=== PATIENT | male | born 1970 | race Two or more races ===

== ENCOUNTER 2018-06-25 11:15 | Inpatient (IN) | payer OTHER ==
[~2018-06-25] VITALS: Ht 172.7 cm; Wt 89.4 kg
[2018-06-25] MEDS ORDERED: VASOTEC20 M1 PO (12:38)
[2018-06-25] MEDS ORDERED: VIMPAT200 MG PO (12:39)
[2018-06-25] MEDS ORDERED: KEPPRA750 MG PO (12:39)
[2018-06-25] MEDS ORDERED: LIPITOR20 MG PO (12:40)
[2018-07-02] MEDS ORDERED: TRAM1TAB98 PO (14:32)
[2018-07-02] MEDS ORDERED: PANTOPRAZOLE SO40 MG PO (14:33)
[2018-07-02] MEDS ORDERED: Intestinex CAP PO (14:33)
== END 2018-07-02 16:16 | disposition home or self-care (01) | DRG 331 ==
LOC: ADM 11:15 → SURH 11:15 → EDSTATUS 11:15 → O/R 06-29 06:57 → SURH 06-29 06:57
PROVIDERS: ADMIT Surgery
PROC: 07TC4ZZ Resection of Pelvis Lymphatic, Percutaneous Endoscopic Approach (ICD-10-PCS; 2018-06-29)
PROC: 0DJD8ZZ Inspection of Lower Intestinal Tract, Via Natural or Artificial Opening Endoscopic (ICD-10-PCS; 2018-06-29)
PROC: 0DTN4ZZ Resection of Sigmoid Colon, Percutaneous Endoscopic Approach (ICD-10-PCS; principal; 2018-06-29 12:00)
DX: C19 Malignant neoplasm of rectosigmoid junction (principal); I11.9 Hypertensive heart disease without heart failure; E11.9 Type 2 diabetes mellitus without complications; E78.00 Pure hypercholesterolemia, unspecified; G40.909 Epilepsy, unspecified, not intractable, without status epilepticus

== ENCOUNTER 2018-07-08 13:52 | Inpatient (IN) | payer OTHER ==
[~2018-07-08] VITALS: Ht 172.7 cm; Wt 83.5 kg
[~2018-07-08 13:52] MED LIST: Intestinex CAP PO; KEPPRA750 MG PO; LIPITOR20 MG PO; PANTOPRAZOLE SO40 MG PO; TRAM1TAB98 PO; VASOTEC20 M1 PO; VIMPAT200 MG PO
[2018-07-19] MEDS ORDERED: Intestinex CAP PO (14:52)
== END 2018-07-19 15:40 | disposition home or self-care (01) | DRG 394 ==
LOC: ER 13:52 → SEC-K 18:26 → SURG 18:26
PROVIDERS: ADMIT Surgery
PROC: BW21ZZZ Computerized Tomography (CT Scan) of Abdomen and Pelvis (ICD-10-PCS; principal; 2018-07-08)
PROC: 02HV33Z Insertion of Infusion Device into Superior Vena Cava, Percutaneous Approach (ICD-10-PCS; 2018-07-10)
DX: K91.89 Other postprocedural complications and disorders of digestive system (principal); J90 Pleural effusion, not elsewhere classified; J98.11 Atelectasis; G89.18 Other acute postprocedural pain; R14.0 Abdominal distension (gaseous); R50.82 Postprocedural fever; E11.9 Type 2 diabetes mellitus without complications; G40.909 Epilepsy, unspecified, not intractable, without status epilepticus; I11.9 Hypertensive heart disease without heart failure; E78.00 Pure hypercholesterolemia, unspecified; K59.09 Other constipation; E78.49 Other hyperlipidemia; Z85.038 Personal history of other malignant neoplasm of large intestine; Z90.49 Acquired absence of other specified parts of digestive tract

== ENCOUNTER 2018-08-17 05:55 | Day surgery (SDC) | payer OTHER ==
[2018-08-17] MEDS ORDERED: ULTRACET PO (09:43)
== END 2018-08-17 12:50 | disposition home or self-care (01) ==
LOC: CIR.AMB 05:55
DX: C18.7 Malignant neoplasm of sigmoid colon (principal)
CPT/HCPCS: 36561; C1751

== ENCOUNTER 2020-05-04 05:13 | Day surgery (SDC) | payer OTHER ==
[~2020-05-04 05:13] MED LIST changes: +JANUMET XR 50-1 EAC1 PO; +ULTRACET PO
[2020-05-04] MEDS ORDERED: ULTRACET PO (08:24)
== END 2020-05-04 10:20 | disposition home or self-care (01) ==
LOC: CIR.AMB 05:13
PROVIDERS: ATTEND Surgery
DX: C18.7 Malignant neoplasm of sigmoid colon (principal); R59.0 Localized enlarged lymph nodes; Z20.828 Contact with and (suspected) exposure to other viral communicable diseases